=== PATIENT | male | born 1965 | race Caucasian/White ===

== ENCOUNTER 2020-11-25 09:42 | Emergency (ER) | payer OTHER ==
[~2020-11-25 09:42] MED LIST: ASPIRIN EC81 MG PO; HCTZ12.5 MG PO; PRAVACHOL20 MG PO; TOPROL XL 50 MG50 MG PO; VALSARTAN-HCTZ1 EAC2 PO
[2020-11-25 10:53] LABS: BASOPHIL 0.7 % (0-2); EOSINOPHIL 0.5 % (0-5); HGB 15.7 g/dl (13.2-18.0); LYMPHOCYTE 17.5 % (15-48); MCH 31.8 pg (25.0-31.0); MCHC 34.9 g/dL (32.0-36.0); MCV 91.1 fL (78.0-100.0); MONOCYTE 10.1 % (0-12); MPV 10.2 fL (6.0-9.5); NEUTROPHIL 70.8 % (41-80); NRBC 0; PLT 291 K/uL (150-400); RBC 4.94 M/uL (4.70-6.00); RDW 12.2 % (11.5-14.0); WBC 9.6 K/uL (4.0-10.5)
[2020-11-25 11:12] LABS: PRO-BNP 155 pg/mL (<125)
[2020-11-25 11:15] LABS: ALBUMIN 3.7 g/dL (3.4-5.0); BILIRUBIN - TOTAL 0.8 mg/dL (0.2-1.0); BUN/CREAT RATIO (CALC) 12.4 RATIO; CREATININE 1.21 mg/dL (0.67-1.17); GLOBULIN (CALCULATION) 3.9 g/dL; POTASSIUM 3.4 mmol/L (3.5-5.1); TOTAL PROTEIN 7.6 g/dL (6.4-8.2)
[2020-11-25 11:56] LABS: IRON % SATURATION 39.1 %SAT (20-50)
[2020-11-25 13:42] LABS: HGB 15.8 g/dL (13.2-18.0)
[2020-11-25] MEDS ORDERED: PROTONIX 40MG T40 MG PO (16:43)
== END 2020-11-25 17:33 | disposition home or self-care (01) ==
LOC: FER 09:42
PROVIDERS: Emergency Medicine
DX: R07.89 Other chest pain (principal); F17.210 Nicotine dependence, cigarettes, uncomplicated; Z88.0 Allergy status to penicillin
CPT/HCPCS: 36415; 71045; 71275; 80053; 83540; 83550; 83605; 83880; 84145; 84484; 85014; 85018; 85025; 85379; 93005; 94760; J2060; Q9967